=== PATIENT | female | born 2000 | race Caucasian/White ===

== ENCOUNTER 2021-02-20 18:49 | Emergency (ER) | payer OTHER, BC ==
[2021-02-20] MEDS ORDERED: Acetaminophen 500 MG TAB ONE (19:09)
[2021-02-20] MEDS ORDERED: Ondansetron ODT 4 MG TAB ONE ×2 (19:31→19:32)
== END 2021-02-20 19:35 | disposition home or self-care (01) ==
LOC: ERS 18:49
DX: S06.0X0A Concussion without loss of consciousness, initial encounter (principal); V89.2XXA Person injured in unspecified motor-vehicle accident, traffic, initial encounter
CPT/HCPCS: 99283; Q0162

== ENCOUNTER 2023-12-15 15:01 | Outpatient (CLI) | payer BC ==
[2023-12-15 16:06] LABS: Hematocrit 35.9 % (36.0-47.0)
[2023-12-15 16:19] LABS: BHCG - Serum Negative (NEGATIVE); Pregs Control Background? CLEAR/WHITE (CLR/WHITE); Pregs Control Bar Appear? YES (CONTROL BAR)
== END 2023-12-15 15:02 | disposition home or self-care (01) ==
LOC: LABBT 15:01
PROVIDERS: ATTEND Specialist
DX: Z01.812 Encounter for preprocedural laboratory examination (principal); J34.2 Deviated nasal septum; J34.3 Hypertrophy of nasal turbinates; J32.0 Chronic maxillary sinusitis; J32.1 Chronic frontal sinusitis; J32.2 Chronic ethmoidal sinusitis; J32.3 Chronic sphenoidal sinusitis
CPT/HCPCS: 84703; 85014

== ENCOUNTER 2023-12-24 08:22 | Day surgery (SDC) | payer BC ==
[2023-12-15 15:23] VITALS: BMI 22.3
[2023-12-24] MEDS ORDERED: Oxymetazoline HCl 0.05% (30 ML BOT) ONE (09:22)
[2023-12-24] MEDS ORDERED: Lidocaine 1% (PF) 30 ML VIAL ONE (09:50)
[2023-12-24] MEDS ORDERED: EPINEPHrine 1 MG/ML VIAL ONE (09:50)
[2023-12-24] MEDS ORDERED: Bacitracin Zinc Ointment 30 gm TUBE ONE (09:51)
[2023-12-24] MEDS ORDERED: Ondansetron PF 4 MG/2 ML Vial ONE ×2 (10:13→13:09)
[2023-12-24] MEDS ORDERED: PROPOFOL 20 ML ONE (10:13)
[2023-12-24] MEDS ORDERED: Dexamethasone 20 MG/5 ML VIAL ONE (10:13)
[2023-12-24] MEDS ORDERED: Lidocaine 1% PF 5 ML VIAL ONE (10:13)
[2023-12-24] MEDS ORDERED: Midazolam HCl 2 mg/2 ml Vial ONE (10:13)
[2023-12-24] MEDS ORDERED: fentaNYL PF 100 MCG/2 ML SYRINGE ONE ×2 (10:13→12:15)
[2023-12-24] MEDS ORDERED: PHENYLEPHRINE-NS 100 MCG/ML 10 ML SYRINGE ONE (11:25)
== END 2023-12-24 14:47 | disposition home or self-care (01) ==
LOC: SDC 08:22
PROVIDERS: ATTEND Specialist
PROC: 09TQ8ZZ Resection of Right Maxillary Sinus, Via Natural or Artificial Opening Endoscopic (ICD-10-PCS; principal; 2023-12-24)
PROC: 09TX8ZZ Resection of Left Sphenoid Sinus, Via Natural or Artificial Opening Endoscopic (ICD-10-PCS; principal; 2023-12-24)
PROC: 09TT8ZZ Resection of Left Frontal Sinus, Via Natural or Artificial Opening Endoscopic (ICD-10-PCS; principal; 2023-12-24)
PROC: 09TV8ZZ Resection of Left Ethmoid Sinus, Via Natural or Artificial Opening Endoscopic (ICD-10-PCS; principal; 2023-12-24)
PROC: 09TL8ZZ Resection of Nasal Turbinate, Via Natural or Artificial Opening Endoscopic (ICD-10-PCS; principal; 2023-12-24)
PROC: 09BM8ZZ Excision of Nasal Septum, Via Natural or Artificial Opening Endoscopic (ICD-10-PCS; principal; 2023-12-24)
PROC: 09TU8ZZ Resection of Right Ethmoid Sinus, Via Natural or Artificial Opening Endoscopic (ICD-10-PCS; principal; 2023-12-24)
PROC: 09TW8ZZ Resection of Right Sphenoid Sinus, Via Natural or Artificial Opening Endoscopic (ICD-10-PCS; principal; 2023-12-24)
PROC: 09TS8ZZ Resection of Right Frontal Sinus, Via Natural or Artificial Opening Endoscopic (ICD-10-PCS; principal; 2023-12-24)
PROC: 09TR8ZZ Resection of Left Maxillary Sinus, Via Natural or Artificial Opening Endoscopic (ICD-10-PCS; principal; 2023-12-24)
DX: J34.2 Deviated nasal septum (principal); J32.4 Chronic pansinusitis; J34.3 Hypertrophy of nasal turbinates; J33.9 Nasal polyp, unspecified; Z79.899 Other long term (current) drug therapy
CPT/HCPCS: J0171; J1100; J2001; J2250; J2405; J2704